=== PATIENT | female | born 1935 | race Caucasian/White ===

== ENCOUNTER 2021-03-07 15:52 | Inpatient (IN) | payer MEDICARE, OTHER ==
[~2021-03-07] VITALS: Ht 165.1 cm; Wt 83.9 kg
--- NOTE | 2021-03-07 16:10 | NUR ---
MD@bedside, medical screening exam in progress
[2021-03-07] MEDS ORDERED: ACETAMINOPHEN 325 MG TABLET PO ONE (16:30)
[2021-03-07] MEDS ORDERED: MORPHINE SULFATE 4 MG/1 ML DISP.SYRIN IM ONE (16:30)
[2021-03-07] MEDS ORDERED: ACETAMINOPHEN 325 MG TABLET ONE (16:31)
[2021-03-07] MEDS ORDERED: MORPHINE SULFATE 4 MG/1 ML DISP.SYRIN ONE ×2 (16:31→18:21)
--- NOTE | 2021-03-07 17:00 | NUR ---
Patient is back from CT scan in same condition, NAD, calm, cooperative, respiration:easy, non-labored, even and symmetrical, pending results & disposition.
[2021-03-07] MEDS ORDERED: MELO-107 PO (17:49)
[2021-03-07] MEDS ORDERED: GABA100C PO (17:49)
[2021-03-07] MEDS ORDERED: ATOR20TA PO (17:49)
[2021-03-07] MEDS ORDERED: OLOP2.5D12 EACHEYE (17:49)
[2021-03-07] MEDS ORDERED: VITAMIN D PO (17:50)
[2021-03-07] MEDS ORDERED: VALS1TAB4 PO (17:50)
[2021-03-07] MEDS ORDERED: SITA100T PO (17:50)
[2021-03-07] MEDS ORDERED: DULO30CA2 PO (17:50)
[2021-03-07] MEDS ORDERED: DOCU-265 PO (17:50)
[2021-03-07] MEDS ORDERED: PRED2.5T PO (17:50)
[2021-03-07] MEDS ORDERED: LEVO75TA7 PO (17:50)
[2021-03-07] MEDS ORDERED: NEBI5TAB8 PO (17:50)
[2021-03-07] MEDS ORDERED: MULT-594 PO (17:50)
[2021-03-07] MEDS ORDERED: ENOXAPARIN SODIUM 40 MG/0.4 ML DISP.SYRIN SQ SCH (18:00)
[2021-03-07] MEDS ORDERED: ACETAMINOPHEN 325 MG TABLET PO PRN (18:00)
[2021-03-07] MEDS ORDERED: Z GUARD REMEDY PASTE 57 GM TUBE TOP PRN (18:00)
[2021-03-07] MEDS ORDERED: ONDANSETRON 4 MG/2 ML VIAL IV PRN (18:00)
[2021-03-07] MEDS ORDERED: MAGNESIUM HYDROXIDE 30 ML LIQUID UDC PO PRN (18:00)
[2021-03-07] MEDS ORDERED: DEXTROSE 50% 50 ML DISP.SYRIN IV PRN (18:15)
[2021-03-07] MEDS ORDERED: MORPHINE SULFATE 4 MG/1 ML DISP.SYRIN IV ONE (18:15)
[2021-03-07] MEDS ORDERED: VITAMIN D 50000 UNIT PO SCH (18:15)
[2021-03-07 18:20] LABS: HEMATOCRIT 31.4 % (31.2-41.9); MEAN CORPUSCULAR HEMOGLOBIN 30.3 uug (24.7-32.8); MEAN CORPUSCULAR VOLUME 89.3 fL (75.5-95.3); PLATELET COUNT (AUTO) 221 K/uL (179-408)
--- NOTE | 2021-03-07 18:24 | NUR ---
Patient was assisted to hospital gown. Yessica-anal care done, for admission to 3rd floor, pending COVID test results@this time.
[2021-03-07 18:37] LABS: *BILIRUBIN,URIN NEGATIVE (NEGATIVE); *BLOOD, URINE NEGATIVE (NEGATIVE); *CLARITY,URINE CLEAR (CLEAR); *COLOR,URINE YELLOW (YELLOW); *KETONES,URINE NEGATIVE (NEGATIVE); *UROBILINOGEN,URINE 0.2 E.U./dl (NORMAL); LEUKOCYTE ESTERASE ,URINE NEGATIVE (NEGATIVE); NITRITE, URINE NEGATIVE (NEGATIVE); PH,URINE 7.5 (5.0-8.0); UGLUCOSE NEGATIVE (NEGATIVE)
--- NOTE | 2021-03-07 18:40 | NUR ---
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
--- NOTE | 2021-03-07 19:08 | NUR ---
Patient will move to 3rd floor medical-surgical floor, after COVID result is back and after change of shift. Belongings List completed. Hands off report given to RN Tico.
--- NOTE | 2021-03-07 19:36 | NUR ---
DIAMANTE Barnes states DIAMANTE Lees will be assigned to take care of this patient.
--- NOTE | 2021-03-07 20:00 | NUR ---
Pt. admitted to med-surg 304, under care of Dr. Arreaga Belongs List completed
[2021-03-07] MEDS ORDERED: IV NS 1000 ML 1,000 ML IV PRN (20:30)
--- NOTE | 2021-03-07 20:30 | NUR ---
RECEIVED PATIENT VIA GURNEY FROM ER. PATIENT IS A/O X3-4. SON AT BEDSIDE TO TRANSLATE. PATIENT IS FARSI SPEAKING ONLY,BUT ABLE TO MAKE SIMPLE NEEDS KNOWN. VSS. PATIENT C/O PAIN UPON ARRIVAL TO FLOOR. H/L INTACT AND PATENT, NOTED TO RIGHT HAND #20 GAUGE. CALL LIGHT IN REACH. BED ALARM ON. WILL CONTINUE TO MONITOR AND ASSESS.
[2021-03-07 20:45] VITALS: BP 114/52
[2021-03-07] MEDS: BLOOD SUGAR DIAGNOSTIC 1 EACH STRIP VI SCH (20:49)
[2021-03-07] MEDS: ENOXAPARIN SODIUM 40 MG/0.4 ML DISP.SYRIN SQ SCH (20:53)
[2021-03-07] MEDS: GABAPENTIN 100 MG CAPSULE PO SCH (20:53)
[2021-03-07] MEDS: ATORVASTATIN 20 MG TABLET PO SCH (20:53)
[2021-03-07] MEDS: HYDROCODONE/APAP 5-325MG TABLET PO PRN (20:54)
[2021-03-07] MEDS: MORPHINE SULFATE 2 MG/1 ML DISP.SYRIN IV PRN (22:19)
[2021-03-08 04:00] VITALS: BP 140/88
[2021-03-08] MEDS: MORPHINE SULFATE 2 MG/1 ML DISP.SYRIN IV PRN ×4 (05:37→22:24)
--- NOTE | 2021-03-08 05:45 | NUR ---
PATIENT AWAKE IN BED. C/O PAIN IN LOWER BACK AND LEFT SHOULDER. PATIENT NOTED GRASPING SHOULDER AND FACIAL GRIMACING. SMALL BRUISING NOTED TO BACK OF LEFT ARM, PATIENT SAID SHE DID FALL. PATIENT GIVEN MORPHINE 1MG IV PRN PER CLOTH BOIL OFF MACHINE OPERATOR. VS WNL. CALLED OUT TO DR. BISWAS GED TEACHER FOR FURTHER ORDERS. NO RESP. DISTRESS NOTED. WHEEZING NOTED. PATIENT ON 02 2L NC SATING 99%. DENIES ANY SOB. CALL LIGHT IN REACH. ALL NEEDS ATTENDED. WILL CONTINUE TO MONITOR AND ASSESS.
--- NOTE | 2021-03-08 06:06 | NUR ---
RECEIVED ORDER FOR XRAY OF LEFT SHOULDER PER DR. BISWAS.
[2021-03-08 06:29] LABS: HEMATOCRIT 31.4 % (31.2-41.9); MEAN CORPUSCULAR HEMOGLOBIN 30.7 uug (24.7-32.8); MEAN CORPUSCULAR VOLUME 89.4 fL (75.5-95.3); PLATELET COUNT (AUTO) 239 K/uL (179-408)
[2021-03-08] MEDS: BLOOD SUGAR DIAGNOSTIC 1 EACH STRIP VI SCH ×4 (06:32→20:54)
[2021-03-08] MEDS: PANTOPRAZOLE SODIUM 40 MG TABLET.DR PO SCH (06:32)
[2021-03-08] MEDS: LEVOTHYROXINE SODIUM 75 MCG TABLET PO SCH (06:32)
[2021-03-08 06:40] LABS: CARBON DIOXIDE 29 mmol/L (21-32); CHLORIDE 95 mmol/L (98-107); CHOLESTEROL 154 mg/dL (<200); GLUCOSE 118 mg/dL (74-106); HDL CHOLESTEROL 55 mg/dL (40-60); MAGNESIUM 2.3 mg/dL (1.8-2.4); PHOSPHOROUS 4.7 mg/dL (2.5-4.9); POTASSIUM 4.7 mmol/L (3.5-5.1); TRIGLYCERIDES 129 MG/DL (30-150); UREA NITROGEN, BLOOD 19 mg/dL (7-18)
[2021-03-08 06:49] LABS: THYROID STIMULATING HORMONE 5.171 mIU/mL (0.358-3.740)
--- NOTE | 2021-03-08 07:30 | NUR ---
Patient received in bed, alert and oriented, Farsi-speaking. On 2L O2 via NC with no SOB or difficulties breathing. IV on right hand intact and running IVF as ordered. BS of 115 this AM, no coverage. Patient c/o being cold and warm blanket provided. All needs met. Call light within easy reach. Will continue to monitor.
[2021-03-08] MEDS: predniSONE 10 MG TABLET PO SCH (08:00)
[2021-03-08] MEDS: LINAGLIPTIN 5 MG TABLET PO SCH (08:00)
[2021-03-08] MEDS: MULTIVITAMINS,THERAPEUTIC TABLET PO SCH (08:00)
[2021-03-08] MEDS: DOCUSATE SODIUM 100 MG CAPSULE PO SCH ×2 (08:00→16:02)
[2021-03-08] MEDS: DULOXETINE 30 MG CAPSULE.DR PO SCH (08:00)
[2021-03-08] MEDS: VALSARTAN 160 MG TABLET PO SCH (08:00)
[2021-03-08] MEDS: METOPROLOL TARTRATE 25 MG TABLET PO SCH ×2 (08:01→20:39)
[2021-03-08] MEDS: MELOXICAM 7.5 MG TABLET PO SCH (08:01)
[2021-03-08] MEDS ORDERED: Medication Not On Formulary EA (Sitagliptin Phosphate (Januvia) 100 MG) PO SCH (09:00)
[2021-03-08] MEDS ORDERED: Medication Not On Formulary EA (Nebivolol Hcl (Bystolic) 5 MG) PO SCH (09:00)
[2021-03-08] MEDS ORDERED: Medication Not On Formulary EA (Meloxicam 15 MG) PO SCH (09:00)
[2021-03-08] MEDS ORDERED: Medication Not On Formulary EA (Multivitamins (Multivitamin) 1 EACH) PO SCH (09:00)
[2021-03-08] MEDS ORDERED: HYDROCHLOROTHIAZIDE 12.5 MG CAPSULE PO SCH (09:00)
[2021-03-08] MEDS: HYDROCODONE/APAP 5-325MG TABLET PO PRN ×2 (09:12→14:12)
--- NOTE | 2021-03-08 09:49 | NUR ---
Patient is moaning and crying from pain after norco administration, 8/10 pain. Additional morphine administered as ordered.
[2021-03-08 12:00] VITALS: BP 117/48
[2021-03-08] MEDS: LIDOCAINE 5% PATCH TD SCH (12:01)
[2021-03-08] MEDS: INSULIN REGULAR, HUMAN 300 UNIT/3 ML VIAL SQ PRN ×2 (12:36→20:55)
[2021-03-08 16:31] VITALS: BP 126/48
--- NOTE | 2021-03-08 19:45 | NUR ---
RECEIVED PATIENT AWAKE IN BED, SON AT BEDSIDE. PATIENT IS C/O SEVERE PAIN IN LOWER BACK. PATIENT GIVEN MORPHINE 1MG IV PER RN. VS WNL. ON O2 2L NC SATING WELL. NO RESP. DISTRESS NOTED. PATIENT REPOSITIONED TO SIDE FOR PRESSURE RELIEF. H/L INTACT AND PATENT, NOTED TO RIGHT HAND. CALL LIGHT IN REACH. ALL NEEDS ATTENDED. WILL CONTINUE TO MONITOR AND ASSESS.
[2021-03-08 20:00] VITALS: BP 122/45
[2021-03-08] MEDS: GABAPENTIN 100 MG CAPSULE PO SCH (20:38)
[2021-03-08] MEDS: ATORVASTATIN 20 MG TABLET PO SCH (20:38)
[2021-03-08] MEDS: ENOXAPARIN SODIUM 40 MG/0.4 ML DISP.SYRIN SQ SCH (20:39)
[2021-03-08] MEDS ORDERED: ZOLPIDEM 5 MG TABLET PO PRN (21:45)
--- NOTE | 2021-03-08 21:45 | NUR ---
PATIENT AWAKE IN BED, STILL C/O PAIN IN LOWER BACK. CALLED OUT TO DR. MADRID FOR FURTHER ORDERS.
--- NOTE | 2021-03-08 22:30 | NUR ---
PATIENT GIVEN MORPHINE 2MG IV PER RN. VSS. ON O2 2L NC. CALL LIGHT IN REACH. ALL NEEDS ATTENDED.
--- NOTE | 2021-03-08 23:00 | NUR ---
PATIENT ASLEEP IN BED. NO S/S OF ANY PAIN OR DISCOMFORT. NO RESP. DISTRESS NOTED. BED ALARM ON. CALL LIGHT IN REACH. ALL NEEDS ATTENDED. WILL CONTINUE TO MONITOR AND ASSESS.
[2021-03-09 04:00] VITALS: BP 127/47
[2021-03-09 06:04] LABS: HEMATOCRIT 31.3 % (31.2-41.9); MEAN CORPUSCULAR HEMOGLOBIN 30.4 uug (24.7-32.8); PLATELET COUNT (AUTO) 218 K/uL (179-408)
[2021-03-09] MEDS: PANTOPRAZOLE SODIUM 40 MG TABLET.DR PO SCH (06:10)
[2021-03-09] MEDS: LEVOTHYROXINE SODIUM 75 MCG TABLET PO SCH (06:10)
[2021-03-09 06:11] LABS: CREATININE 0.9 mg/dL (0.6-1.3); MAGNESIUM 2.1 mg/dL (1.8-2.4); PHOSPHOROUS 3.7 mg/dL (2.5-4.9); POTASSIUM 4.6 mmol/L (3.5-5.1)
[2021-03-09] MEDS: BLOOD SUGAR DIAGNOSTIC 1 EACH STRIP VI SCH ×5 (06:37→20:31)
--- NOTE | 2021-03-09 07:00 | NUR ---
Patient received in bed, alert and oriented, Farsi-speaking. On 2L O2 via NC with no SOB or difficulties breathing. IV on right hand intact All needs met. Call light within easy reach. Will continue to monitor
[2021-03-09] MEDS: LIDOCAINE 5% PATCH TD SCH (07:58)
[2021-03-09] MEDS: LINAGLIPTIN 5 MG TABLET PO SCH (07:59)
[2021-03-09] MEDS: DOCUSATE SODIUM 100 MG CAPSULE PO SCH ×2 (07:59→16:16)
[2021-03-09] MEDS: VALSARTAN 160 MG TABLET PO SCH (07:59)
[2021-03-09] MEDS: DULOXETINE 30 MG CAPSULE.DR PO SCH (07:59)
[2021-03-09] MEDS: predniSONE 10 MG TABLET PO SCH (07:59)
[2021-03-09] MEDS: METOPROLOL TARTRATE 25 MG TABLET PO SCH ×2 (07:59→20:02)
[2021-03-09] MEDS: MULTIVITAMINS,THERAPEUTIC TABLET PO SCH (07:59)
[2021-03-09] MEDS: MELOXICAM 7.5 MG TABLET PO SCH (08:00)
--- NOTE | 2021-03-09 10:00 | NUR ---
pt is resting and son is at bed side
[2021-03-09] MEDS: HYDROCODONE/APAP 5-325MG TABLET PO PRN ×2 (10:58→20:07)
--- NOTE | 2021-03-09 10:58 | NUR ---
pt c/o pain in the back [place] 5mg Po given per Md orders
[2021-03-09 11:03] VITALS: BP 138/44
[2021-03-09] MEDS: INSULIN REGULAR, HUMAN 300 UNIT/3 ML VIAL SQ PRN (12:09)
[2021-03-09 14:59] VITALS: BP 142/55
[2021-03-09] MEDS: MORPHINE SULFATE 2 MG/1 ML DISP.SYRIN IV PRN (16:10)
[2021-03-09 20:00] VITALS: BP 161/61
[2021-03-09] MEDS: ATORVASTATIN 20 MG TABLET PO SCH (20:03)
[2021-03-09] MEDS: GABAPENTIN 100 MG CAPSULE PO SCH (20:03)
[2021-03-09] MEDS: ENOXAPARIN SODIUM 40 MG/0.4 ML DISP.SYRIN SQ SCH (20:03)
--- NOTE | 2021-03-10 02:40 | NUR ---
pt sleeping at this time call light with in reach
[2021-03-10 04:00] VITALS: BP 142/64
[2021-03-10] MEDS: HYDROCODONE/APAP 5-325MG TABLET PO PRN ×3 (05:11→15:44)
[2021-03-10] MEDS: LEVOTHYROXINE SODIUM 75 MCG TABLET PO SCH (06:04)
[2021-03-10] MEDS: PANTOPRAZOLE SODIUM 40 MG TABLET.DR PO SCH (06:04)
[2021-03-10] MEDS: BLOOD SUGAR DIAGNOSTIC 1 EACH STRIP VI SCH ×3 (06:05→16:43)
[2021-03-10] MEDS ORDERED: ACET325T53 PO (07:52)
[2021-03-10] MEDS ORDERED: LINA5TAB PO (07:52)
[2021-03-10] MEDS ORDERED: METO25TA6 PO (07:52)
[2021-03-10] MEDS ORDERED: Ergocalciferol PO (07:52)
[2021-03-10] MEDS ORDERED: MULT-24 PO (07:52)
[2021-03-10] MEDS ORDERED: MAGN400O6 PO (07:52)
[2021-03-10] MEDS ORDERED: LIDO30AD10 TD (07:52)
[2021-03-10] MEDS ORDERED: VALS160T2 PO (07:52)
[2021-03-10] MEDS ORDERED: PANT40TA2 PO (07:52)
[2021-03-10] MEDS ORDERED: MELO-105 PO (07:52)
[2021-03-10] MEDS ORDERED: ZOLP5TAB8 PO (07:52)
[2021-03-10] MEDS ORDERED: ENOX40DI SQ (07:52)
[2021-03-10] MEDS ORDERED: HYDR-3972 PO (07:52)
[2021-03-10] MEDS ORDERED: Blood Sugar Diagnostic VI (07:52)
--- NOTE | 2021-03-10 08:00 | NUR ---
Received report from night supervisor RN. pt is alert and oriented x 3. Speaks Farsi, son translates for her when at bedside. pt is on 2 L nasal cannula, uses a diaper, on cardiac diet. She is able to swallow her medications whole. Pt complains of back and hip pain, has a right hip fx. 20 gauge IV access on right hand. accuchecks ac and hs. will continue to monitor.
[2021-03-10] MEDS: DOCUSATE SODIUM 100 MG CAPSULE PO SCH ×2 (08:37→17:11)
[2021-03-10] MEDS: LINAGLIPTIN 5 MG TABLET PO SCH (08:37)
[2021-03-10] MEDS: MULTIVITAMINS,THERAPEUTIC TABLET PO SCH (08:38)
[2021-03-10] MEDS: predniSONE 10 MG TABLET PO SCH (08:38)
[2021-03-10] MEDS: MELOXICAM 7.5 MG TABLET PO SCH (08:38)
[2021-03-10] MEDS: VALSARTAN 160 MG TABLET PO SCH (08:38)
[2021-03-10] MEDS: DULOXETINE 30 MG CAPSULE.DR PO SCH (08:38)
[2021-03-10] MEDS: METOPROLOL TARTRATE 25 MG TABLET PO SCH (08:40)
[2021-03-10] MEDS: LIDOCAINE 5% PATCH TD SCH (08:41)
[2021-03-10 11:43] VITALS: BP 130/44
[2021-03-10] MEDS: INSULIN REGULAR, HUMAN 300 UNIT/3 ML VIAL SQ PRN ×2 (11:58→16:50)
[2021-03-10 16:30] VITALS: BP 144/45
--- NOTE | 2021-03-10 18:00 | NUR ---
Patient resting in bed. AOx4. On 2L O2 via NC. No signs of acute distress. Patient with right hand IV access, patent and intact. Patient complained of back pain, [place] PRN given as ordered. Safety measures provided. Needs anticipated and met. Will endorse to incoming shift for continuity of care.
--- NOTE | 2021-03-10 18:34 | NUR ---
Patient discharged to [facility] ARU. Patient AOx4. On 2L O2 via NC. No signs of acute distress. Patient aware of transfer to ARU.
[2021-03-13] MEDS ORDERED: ERGOCALCIFEROL 50,000 UNIT CAPSULE PO SCH (09:00)
== END 2021-03-10 18:35 | DRG 543 ==
LOC: ER 15:52 → MEDSURG3 20:11
PROVIDERS: ADMIT Registered Nurse; ATTEND Registered Nurse
DX: M80.08XA Age-related osteoporosis with current pathological fracture, vertebra(e), initial encounter for fracture (principal); E87.1 Hypo-osmolality and hyponatremia; E03.9 Hypothyroidism, unspecified; E66.9 Obesity, unspecified; D64.9 Anemia, unspecified; E86.1 Hypovolemia; G89.4 Chronic pain syndrome; I11.0 Hypertensive heart disease with heart failure; I50.9 Heart failure, unspecified; M48.061 Spinal stenosis, lumbar region without neurogenic claudication; R26.9 Unspecified abnormalities of gait and mobility; M19.90 Unspecified osteoarthritis, unspecified site; Z68.30 Body mass index [BMI] 30.0-30.9, adult; Z20.822 Contact with and (suspected) exposure to COVID-19; M47.816 Spondylosis without myelopathy or radiculopathy, lumbar region
CPT/HCPCS: 36415; 72131; 72170; 73020; 73630; 83735; 84100; 84443; 85025; 97161; C1758; G0378; J1650; J1815; J2270; J7030; J7512

== ENCOUNTER 2021-03-10 18:36 | Inpatient (IN) | payer MEDICARE, OTHER ==
[~2021-03-10] VITALS: Ht 165.1 cm; Wt 83.9 kg
[~2021-03-10 18:36] MED LIST: ACET325T53 PO; ATOR20TA PO; Blood Sugar Diagnostic VI; DOCU-265 PO; DULO30CA2 PO; ENOX40DI SQ; Ergocalciferol PO; GABA100C PO; HYDR-3972 PO; LEVO75TA7 PO; LIDO30AD10 TD; LINA5TAB PO; MAGN400O6 PO; MELO-105 PO; MELO-107 PO; METO25TA6 PO; MULT-24 PO; MULT-594 PO; NEBI5TAB8 PO; OLOP2.5D12 EACHEYE; PANT40TA2 PO; PRED2.5T PO; SITA100T PO; VALS160T2 PO; VALS1TAB4 PO; VITAMIN D PO; ZOLP5TAB8 PO
[2021-03-10] MEDS: Z GUARD REMEDY PASTE 57 GM TUBE TOP SCH (21:46)
[2021-03-10] MEDS ORDERED: MAGNESIUM HYDROXIDE 30 ML LIQUID UDC PO PRN (22:00)
[2021-03-10] MEDS ORDERED: ZOLPIDEM 5 MG TABLET PO PRN (22:00)
[2021-03-10] MEDS: HYDROCODONE/APAP 5-325MG TABLET PO PRN (22:31)
[2021-03-10] MEDS: ENOXAPARIN SODIUM 40 MG/0.4 ML DISP.SYRIN SQ SCH (22:36)
--- NOTE | 2021-03-11 01:19 | NUR ---
Admitted 85 y/o female from NH to ARU with dx of acute bilateral L5 pars fractures and severe lumbar central stenosis. On O2 at 2lpm via NC, saturating at 97%. No respiratory distress. Initial and full body assessment done with photo taken, placed in chart. Belongings list filled up by BOOK[employer]. R hand heplock remains patent and intact, flushed with NS. Informed Dr. Pollard of admission and med recon done by Dr. Collins. Pt c/o pain on L hip 02/04, norco PRN given and noted effective. Pt fell asleep afterwards. Call light placed within reach. All needs attended. Will continue to monitor.
[2021-03-11] MEDS: HYDROCODONE/APAP 5-325MG TABLET PO PRN ×4 (05:19→19:18)
[2021-03-11] MEDS: LEVOTHYROXINE SODIUM 75 MCG TABLET PO SCH (06:01)
[2021-03-11] MEDS: PANTOPRAZOLE SODIUM 40 MG TABLET.DR PO SCH (06:01)
--- NOTE | 2021-03-11 06:15 | NUR ---
Pt slept intermittently and called a lot throughout the night, was changed several times. Medicated pain x2, noted effective. Turned and repositioned PRN. All due medications given on time and tolerated well. Call light placed within reach. Frequent visual checks done. Will endorse to next shift for continuity of care.
[2021-03-11 07:18] VITALS: BP 159/54
[2021-03-11] MEDS ORDERED: DEXTROSE 50% 50 ML DISP.SYRIN IV PRN (08:00)
--- NOTE | 2021-03-11 08:00 | NUR ---
Received report from retail shift manager RN. pt is asleep, on 2L NC. alert and oriented x 3. comfort measures taken, call light within reach. bed low and locked. no signs of discomfort or distress at this time. will continue to monitor.
[2021-03-11] MEDS: predniSONE 10 MG TABLET PO SCH (09:32)
[2021-03-11] MEDS: MULTIVITAMINS,THERAPEUTIC TABLET PO SCH (09:32)
[2021-03-11] MEDS: LINAGLIPTIN 5 MG TABLET PO SCH (09:32)
[2021-03-11] MEDS: MELOXICAM 7.5 MG TABLET PO SCH (09:32)
[2021-03-11] MEDS: METOPROLOL TARTRATE 25 MG TABLET PO SCH ×2 (09:33→20:28)
[2021-03-11] MEDS: DULOXETINE 30 MG CAPSULE.DR PO SCH (09:33)
[2021-03-11] MEDS: VALSARTAN 160 MG TABLET PO SCH (09:33)
[2021-03-11] MEDS: DOCUSATE SODIUM 100 MG CAPSULE PO SCH ×2 (09:33→16:40)
[2021-03-11] MEDS: Z GUARD REMEDY PASTE 57 GM TUBE TOP SCH ×2 (09:36→20:41)
[2021-03-11] MEDS: LIDOCAINE 5% PATCH TD SCH (09:36)
[2021-03-11] MEDS: BLOOD SUGAR DIAGNOSTIC 1 EACH STRIP VI SCH ×3 (12:02→20:41)
[2021-03-11] MEDS ORDERED: PHENYLEPHRINE/SHARK LIVER/CCB 1 EACH SUPP.RECT RC PRN (15:15)
[2021-03-11 15:41] VITALS: BP 146/45
[2021-03-11] MEDS ORDERED: CLONIDINE HCL 0.2 MG TABLET PO PRN (16:30)
[2021-03-11] MEDS: INSULIN REGULAR, HUMAN 300 UNIT/3 ML VIAL SQ PRN (16:47)
[2021-03-11 20:00] VITALS: BP 152/57
[2021-03-11] MEDS: GABAPENTIN 100 MG CAPSULE PO SCH (20:28)
[2021-03-11] MEDS: ATORVASTATIN 20 MG TABLET PO SCH (20:33)
[2021-03-11] MEDS: ENOXAPARIN SODIUM 40 MG/0.4 ML DISP.SYRIN SQ SCH (20:41)
[2021-03-12] MEDS: HYDROCODONE/APAP 5-325MG TABLET PO PRN ×4 (03:54→23:39)
[2021-03-12 04:00] VITALS: BP 144/53
[2021-03-12] MEDS: LEVOTHYROXINE SODIUM 75 MCG TABLET PO SCH (06:02)
[2021-03-12] MEDS: PANTOPRAZOLE SODIUM 40 MG TABLET.DR PO SCH (06:02)
[2021-03-12] MEDS: BLOOD SUGAR DIAGNOSTIC 1 EACH STRIP VI SCH ×4 (06:37→20:08)
[2021-03-12 08:00] VITALS: BP 126/41
[2021-03-12] MEDS: METOPROLOL TARTRATE 25 MG TABLET PO SCH ×2 (08:04→20:16)
[2021-03-12] MEDS: MULTIVITAMINS,THERAPEUTIC TABLET PO SCH (08:04)
[2021-03-12] MEDS: DOCUSATE SODIUM 100 MG CAPSULE PO SCH ×2 (08:04→16:06)
[2021-03-12] MEDS: predniSONE 10 MG TABLET PO SCH (08:04)
[2021-03-12] MEDS: LIDOCAINE 5% PATCH TD SCH (08:04)
[2021-03-12] MEDS: LINAGLIPTIN 5 MG TABLET PO SCH (08:04)
[2021-03-12] MEDS: MELOXICAM 7.5 MG TABLET PO SCH (08:04)
[2021-03-12] MEDS: DULOXETINE 30 MG CAPSULE.DR PO SCH (08:04)
[2021-03-12] MEDS: VALSARTAN 160 MG TABLET PO SCH (08:05)
[2021-03-12] MEDS: Z GUARD REMEDY PASTE 57 GM TUBE TOP SCH ×2 (09:00→20:26)
[2021-03-12] MEDS: INSULIN REGULAR, HUMAN 300 UNIT/3 ML VIAL SQ PRN ×2 (11:02→20:19)
[2021-03-12 11:06] LABS: POTASSIUM 4.3 mmol/L (3.5-5.1)
--- NOTE | 2021-03-12 14:28 | NUR ---
INTERDISCIPLINARY TEAM CONFERENCE
[2021-03-12] MEDS: OXYCODONE HCL 10 MG TAB.SR.12H PO SCH (14:44)
[2021-03-12] MEDS ORDERED: NALOXONE HCL 0.4 MG/ML AMPUL IV PRN (14:45)
[2021-03-12 16:11] VITALS: BP 147/55
[2021-03-12 20:00] VITALS: BP 123/56
[2021-03-12] MEDS: ATORVASTATIN 20 MG TABLET PO SCH (20:09)
[2021-03-12] MEDS: GABAPENTIN 100 MG CAPSULE PO SCH (20:09)
[2021-03-12] MEDS: ENOXAPARIN SODIUM 40 MG/0.4 ML DISP.SYRIN SQ SCH (20:19)
[2021-03-13 04:46] VITALS: BP 127/78
[2021-03-13] MEDS: PANTOPRAZOLE SODIUM 40 MG TABLET.DR PO SCH (06:08)
[2021-03-13] MEDS: LEVOTHYROXINE SODIUM 75 MCG TABLET PO SCH (06:08)
[2021-03-13] MEDS: BLOOD SUGAR DIAGNOSTIC 1 EACH STRIP VI SCH ×4 (06:56→21:27)
[2021-03-13 08:00] VITALS: BP 129/67
[2021-03-13] MEDS: HYDROCODONE/APAP 5-325MG TABLET PO PRN ×3 (08:13→20:06)
[2021-03-13] MEDS: METOPROLOL TARTRATE 25 MG TABLET PO SCH ×2 (08:38→21:00)
[2021-03-13] MEDS: LINAGLIPTIN 5 MG TABLET PO SCH (08:38)
[2021-03-13] MEDS: MULTIVITAMINS,THERAPEUTIC TABLET PO SCH (08:39)
[2021-03-13] MEDS: DULOXETINE 60 MG CAPSULE.DR PO SCH (08:39)
[2021-03-13] MEDS: MELOXICAM 7.5 MG TABLET PO SCH (08:39)
[2021-03-13] MEDS: predniSONE 10 MG TABLET PO SCH (08:39)
[2021-03-13] MEDS: VALSARTAN 160 MG TABLET PO SCH (08:39)
[2021-03-13] MEDS: DOCUSATE SODIUM 100 MG CAPSULE PO SCH ×2 (08:39→16:18)
[2021-03-13] MEDS: LIDOCAINE 5% PATCH TD SCH (08:40)
[2021-03-13] MEDS: Z GUARD REMEDY PASTE 57 GM TUBE TOP SCH ×2 (08:40→21:28)
[2021-03-13] MEDS: OXYCODONE HCL 10 MG TAB.SR.12H PO SCH (10:21)
[2021-03-13] MEDS: INSULIN REGULAR, HUMAN 300 UNIT/3 ML VIAL SQ PRN ×3 (12:10→20:34)
[2021-03-13 16:06] VITALS: BP 125/42
--- NOTE | 2021-03-13 16:17 | NUR ---
INDIVIDUALIZED PLAN OF CARE
--- NOTE | 2021-03-13 18:34 | NUR ---
patient is alert, oriented x4, no sob, resp even nonlabored ,skin warm and dry to touch, pain was in lot of pain, managed with medication, and nonpharmacological interventions, with some effectiveness, kept patient clean and dry. patient participated in PT,OT services, however tolerated fairly. continue with PT, OT as tolerated, family has multiple questions regarding patient progress toward PT ,OT. appropriate questions answered. continue with current plan of care
[2021-03-13] MEDS: ATORVASTATIN 20 MG TABLET PO SCH (20:06)
[2021-03-13] MEDS: GABAPENTIN 100 MG CAPSULE PO SCH (20:06)
[2021-03-13 20:11] VITALS: BP 135/46
[2021-03-13] MEDS: ENOXAPARIN SODIUM 40 MG/0.4 ML DISP.SYRIN SQ SCH (20:35)
[2021-03-14] MEDS: HYDROCODONE/APAP 10-325 MG TABLET PO PRN ×2 (00:09→10:33)
--- NOTE | 2021-03-14 00:10 | NUR ---
Patient awake screaming of pain .[place] 5/325 was given and was ineffective .Repositioned patient for comfort.Still c/o pain. Dr Dunlap was here.Notified MD with new order received noted and carried out.[place] 10/325 given.Will continue to monitor.
[2021-03-14 04:21] VITALS: BP 135/80
[2021-03-14] MEDS: PANTOPRAZOLE SODIUM 40 MG TABLET.DR PO SCH (06:16)
[2021-03-14] MEDS: LEVOTHYROXINE SODIUM 75 MCG TABLET PO SCH (06:16)
[2021-03-14] MEDS: BLOOD SUGAR DIAGNOSTIC 1 EACH STRIP VI SCH ×4 (06:45→20:25)
[2021-03-14 07:27] VITALS: BP 131/54
--- NOTE | 2021-03-14 07:30 | NUR ---
Patient received in bed, alert and oriented x3-4, mainly Farsi-speaking. Right hand IV intact with no redness or swelling. BS is 95 this AM, no coverage required. No c/o pain or discomforts at this time. All needs met at this time. Call light and personal belongings within easy reach. Will continue to monitor.
[2021-03-14] MEDS: DULOXETINE 60 MG CAPSULE.DR PO SCH (08:15)
[2021-03-14] MEDS: predniSONE 10 MG TABLET PO SCH (08:15)
[2021-03-14] MEDS: DOCUSATE SODIUM 100 MG CAPSULE PO SCH ×2 (08:15→18:17)
[2021-03-14] MEDS: OXYCODONE HCL 10 MG TAB.SR.12H PO SCH (08:15)
[2021-03-14] MEDS: VALSARTAN 160 MG TABLET PO SCH (08:16)
[2021-03-14] MEDS: MULTIVITAMINS,THERAPEUTIC TABLET PO SCH (08:16)
[2021-03-14] MEDS: LINAGLIPTIN 5 MG TABLET PO SCH (08:16)
[2021-03-14] MEDS: METOPROLOL TARTRATE 25 MG TABLET PO SCH ×2 (08:16→20:24)
[2021-03-14] MEDS: LIDOCAINE 5% PATCH TD SCH (08:17)
[2021-03-14] MEDS: Z GUARD REMEDY PASTE 57 GM TUBE TOP SCH ×2 (10:37→20:25)
[2021-03-14] MEDS: HYDROCODONE/APAP 5-325MG TABLET PO PRN ×2 (15:16→20:40)
[2021-03-14 15:42] VITALS: BP 133/44
[2021-03-14] MEDS: MIRALAX 17 GM POWD.PACK PO SCH (18:17)
[2021-03-14] MEDS: INSULIN REGULAR, HUMAN 300 UNIT/3 ML VIAL SQ PRN ×2 (18:17→20:36)
--- NOTE | 2021-03-14 20:00 | NUR ---
NSG: Received patient lying in bed. on 2L NC. alert and oriented x 3. comfort measures taken, call light within reach. bed low and locked. no signs of discomfort or distress at this time. will continue to monitor.
[2021-03-14 20:10] VITALS: BP 112/42
[2021-03-14] MEDS: ENOXAPARIN SODIUM 40 MG/0.4 ML DISP.SYRIN SQ SCH ×2 (20:22→20:35)
[2021-03-14] MEDS: ATORVASTATIN 20 MG TABLET PO SCH (20:23)
[2021-03-14] MEDS: GABAPENTIN 100 MG CAPSULE PO SCH (20:23)
[2021-03-15 04:10] VITALS: BP 137/67
[2021-03-15 04:38] VITALS: BP 137/67
--- NOTE | 2021-03-15 05:06 | NUR ---
NSG: Remain calm and cooperative. pain meds given x1 for pain and effective. assisted with adl's. good pericare given. Turned and repositioned PRN. All due medications given on time and tolerated well. Call light placed within reach. Frequent visual checks done. bed alarm on. continue plan of care.
[2021-03-15] MEDS: HYDROCODONE/APAP 5-325MG TABLET PO PRN ×2 (05:46→16:53)
--- NOTE | 2021-03-15 05:47 | NUR ---
patient c/o hip pain. norco 5/325 mg po given. continue monitoring for pain.
[2021-03-15] MEDS: LEVOTHYROXINE SODIUM 75 MCG TABLET PO SCH (06:01)
[2021-03-15] MEDS: PANTOPRAZOLE SODIUM 40 MG TABLET.DR PO SCH (06:01)
[2021-03-15] MEDS: BLOOD SUGAR DIAGNOSTIC 1 EACH STRIP VI SCH ×4 (06:21→20:25)
[2021-03-15 07:23] VITALS: BP 111/45
--- NOTE | 2021-03-15 07:30 | NUR ---
Patient received in bed, alert and oriented x3-4, mainly Farsi-speaking. Right hand IV intact with no redness or swelling. BS is 94 this AM, no coverage required. No c/o pain or discomforts at this time. All needs met at this time. Call light and personal belongings within easy reach. Will continue to monitor.
[2021-03-15] MEDS: DULOXETINE 60 MG CAPSULE.DR PO SCH (08:29)
[2021-03-15] MEDS: MULTIVITAMINS,THERAPEUTIC TABLET PO SCH (08:29)
[2021-03-15] MEDS: LINAGLIPTIN 5 MG TABLET PO SCH (08:29)
[2021-03-15] MEDS: predniSONE 10 MG TABLET PO SCH (08:29)
[2021-03-15] MEDS: LIDOCAINE 5% PATCH TD SCH (08:29)
[2021-03-15] MEDS: MIRALAX 17 GM POWD.PACK PO SCH (08:29)
[2021-03-15] MEDS: DOCUSATE SODIUM 100 MG CAPSULE PO SCH ×2 (08:29→16:52)
[2021-03-15] MEDS: OXYCODONE HCL 10 MG TAB.SR.12H PO SCH (08:30)
[2021-03-15] MEDS: METOPROLOL TARTRATE 25 MG TABLET PO SCH ×2 (08:30→20:20)
[2021-03-15] MEDS: VALSARTAN 160 MG TABLET PO SCH (08:30)
[2021-03-15] MEDS: Z GUARD REMEDY PASTE 57 GM TUBE TOP SCH ×2 (08:31→20:25)
[2021-03-15 11:30] VITALS: BP 111/45
[2021-03-15] MEDS: INSULIN REGULAR, HUMAN 300 UNIT/3 ML VIAL SQ PRN ×3 (11:58→20:33)
[2021-03-15 15:06] VITALS: BP 123/49
--- NOTE | 2021-03-15 19:31 | NUR ---
NSG: Received patient lying in bed. Patient is alert and oriented x 3. comfort measures taken, call light within reach. bed low and locked. no signs of discomfort or distress at this time. will continue to monitor.
[2021-03-15 20:00] VITALS: BP 123/49
[2021-03-15] MEDS: GABAPENTIN 100 MG CAPSULE PO SCH (20:20)
[2021-03-15] MEDS: ATORVASTATIN 20 MG TABLET PO SCH (20:20)
[2021-03-15] MEDS: ENOXAPARIN SODIUM 40 MG/0.4 ML DISP.SYRIN SQ SCH (20:25)
--- NOTE | 2021-03-16 00:29 | NUR ---
resting in bed comfortably. no s/s of pain or discomfort at this time.
[2021-03-16] MEDS: HYDROCODONE/APAP 10-325 MG TABLET PO PRN ×2 (03:24→15:25)
[2021-03-16 04:21] VITALS: BP 154/53
--- NOTE | 2021-03-16 04:46 | NUR ---
NSG: Remain calm and cooperative. NORCO given x1 for pain and effective. assisted with adl's. good pericare given. Turned and repositioned PRN. All due medications given on time and tolerated well. Call light placed within reach. Frequent visual checks done. bed alarm on. continue plan of care.
[2021-03-16] MEDS: PANTOPRAZOLE SODIUM 40 MG TABLET.DR PO SCH (06:06)
[2021-03-16] MEDS: LEVOTHYROXINE SODIUM 75 MCG TABLET PO SCH (06:06)
[2021-03-16] MEDS: BLOOD SUGAR DIAGNOSTIC 1 EACH STRIP VI SCH ×4 (06:34→20:46)
[2021-03-16 08:00] VITALS: BP 148/47
[2021-03-16] MEDS: LIDOCAINE 5% PATCH TD SCH (08:48)
[2021-03-16] MEDS: DOCUSATE SODIUM 100 MG CAPSULE PO SCH ×2 (08:48→16:59)
[2021-03-16] MEDS: LINAGLIPTIN 5 MG TABLET PO SCH (08:48)
[2021-03-16] MEDS: MULTIVITAMINS,THERAPEUTIC TABLET PO SCH (08:49)
[2021-03-16] MEDS: DULOXETINE 60 MG CAPSULE.DR PO SCH (08:49)
[2021-03-16] MEDS: VALSARTAN 160 MG TABLET PO SCH (08:49)
[2021-03-16] MEDS: OXYCODONE HCL 10 MG TAB.SR.12H PO SCH (08:50)
[2021-03-16] MEDS: MIRALAX 17 GM POWD.PACK PO SCH (08:50)
[2021-03-16] MEDS: METOPROLOL TARTRATE 25 MG TABLET PO SCH ×2 (08:50→20:14)
[2021-03-16] MEDS: Z GUARD REMEDY PASTE 57 GM TUBE TOP SCH ×2 (08:51→20:03)
--- NOTE | 2021-03-16 14:15 | NUR ---
Patient is alert and oriented x 3, at bedside. Patient in room air saturating at 95% no s/s of distress, able to follow simple commands. All due meds given per MD order. Call light placed within reach. All needs met promptly.
[2021-03-16 15:28] VITALS: BP 151/62
[2021-03-16 20:00] VITALS: BP 117/45
[2021-03-16] MEDS: GABAPENTIN 100 MG CAPSULE PO SCH (20:02)
[2021-03-16] MEDS: ATORVASTATIN 20 MG TABLET PO SCH (20:02)
[2021-03-16] MEDS: ENOXAPARIN SODIUM 40 MG/0.4 ML DISP.SYRIN SQ SCH (20:03)
[2021-03-17 04:00] VITALS: BP 133/59
[2021-03-17] MEDS: PANTOPRAZOLE SODIUM 40 MG TABLET.DR PO SCH (06:04)
[2021-03-17] MEDS: BLOOD SUGAR DIAGNOSTIC 1 EACH STRIP VI SCH ×4 (06:04→20:33)
[2021-03-17] MEDS: LEVOTHYROXINE SODIUM 75 MCG TABLET PO SCH (06:04)
[2021-03-17 08:00] VITALS: BP 139/47
[2021-03-17] MEDS: DULOXETINE 60 MG CAPSULE.DR PO SCH (08:58)
[2021-03-17] MEDS: DOCUSATE SODIUM 100 MG CAPSULE PO SCH ×2 (08:58→17:51)
[2021-03-17] MEDS: OXYCODONE HCL 10 MG TAB.SR.12H PO SCH (08:58)
[2021-03-17] MEDS: MULTIVITAMINS,THERAPEUTIC TABLET PO SCH (08:58)
[2021-03-17] MEDS: LINAGLIPTIN 5 MG TABLET PO SCH (08:59)
[2021-03-17] MEDS: VALSARTAN 160 MG TABLET PO SCH (08:59)
[2021-03-17] MEDS: METOPROLOL TARTRATE 25 MG TABLET PO SCH ×2 (08:59→20:25)
[2021-03-17] MEDS: MIRALAX 17 GM POWD.PACK PO SCH (09:00)
[2021-03-17] MEDS: LIDOCAINE 5% PATCH TD SCH (09:00)
[2021-03-17] MEDS: CLOTRIMAZOLE 1% CREAM 30 GM TUBE TOP SCH ×2 (09:04→17:51)
[2021-03-17] MEDS: Z GUARD REMEDY PASTE 57 GM TUBE TOP SCH ×2 (09:04→20:34)
[2021-03-17] MEDS: INSULIN REGULAR, HUMAN 300 UNIT/3 ML VIAL SQ PRN ×2 (12:07→20:33)
[2021-03-17] MEDS: HYDROCODONE/APAP 5-325MG TABLET PO PRN (13:14)
[2021-03-17 16:14] VITALS: BP 115/50
[2021-03-17 20:00] VITALS: BP 142/49
[2021-03-17] MEDS: HYDROCODONE/APAP 10-325 MG TABLET PO PRN (20:25)
[2021-03-17] MEDS: ATORVASTATIN 20 MG TABLET PO SCH (20:25)
[2021-03-17] MEDS: GABAPENTIN 100 MG CAPSULE PO SCH (20:25)
[2021-03-17] MEDS: ENOXAPARIN SODIUM 40 MG/0.4 ML DISP.SYRIN SQ SCH (20:31)
--- NOTE | 2021-03-17 23:09 | NUR ---
Received pt resting in bed. AAO x3. No acute distress noted. C/o 8/10 pain, [place] PRN and other due meds given as ordered. Blood sugar 130, no insulin coverage as per sliding scale. Safety measures maintained. Call light within reach. Will continue to monitor.
[2021-03-18 04:00] VITALS: BP 125/45
[2021-03-18] MEDS: PANTOPRAZOLE SODIUM 40 MG TABLET.DR PO SCH (06:09)
[2021-03-18] MEDS: LEVOTHYROXINE SODIUM 75 MCG TABLET PO SCH (06:09)
[2021-03-18] MEDS: BLOOD SUGAR DIAGNOSTIC 1 EACH STRIP VI SCH ×4 (06:54→21:01)
[2021-03-18 08:50] VITALS: BP 127/49
[2021-03-18] MEDS: DULOXETINE 60 MG CAPSULE.DR PO SCH (09:25)
[2021-03-18] MEDS: OXYCODONE HCL 10 MG TAB.SR.12H PO SCH (09:25)
[2021-03-18] MEDS: DOCUSATE SODIUM 100 MG CAPSULE PO SCH ×2 (09:25→17:10)
[2021-03-18] MEDS: LINAGLIPTIN 5 MG TABLET PO SCH (09:25)
[2021-03-18] MEDS: METOPROLOL TARTRATE 25 MG TABLET PO SCH ×2 (09:25→20:52)
[2021-03-18] MEDS: CLOTRIMAZOLE 1% CREAM 30 GM TUBE TOP SCH ×2 (09:26→17:10)
[2021-03-18] MEDS: Z GUARD REMEDY PASTE 57 GM TUBE TOP SCH ×2 (09:26→20:56)
[2021-03-18] MEDS: MIRALAX 17 GM POWD.PACK PO SCH (09:26)
[2021-03-18] MEDS: LIDOCAINE 5% PATCH TD SCH (09:26)
[2021-03-18] MEDS: VALSARTAN 160 MG TABLET PO SCH (09:26)
[2021-03-18] MEDS: MULTIVITAMINS,THERAPEUTIC TABLET PO SCH (09:26)
[2021-03-18 15:45] VITALS: BP 119/50
[2021-03-18 20:05] VITALS: BP 131/56
[2021-03-18] MEDS: ATORVASTATIN 20 MG TABLET PO SCH (20:52)
[2021-03-18] MEDS: GABAPENTIN 100 MG CAPSULE PO SCH (20:52)
[2021-03-18] MEDS: ENOXAPARIN SODIUM 40 MG/0.4 ML DISP.SYRIN SQ SCH (20:54)
[2021-03-18] MEDS: HYDROCODONE/APAP 10-325 MG TABLET PO PRN (21:04)
--- NOTE | 2021-03-18 22:41 | NUR ---
Received pt on awake on bed. On O2 at 2L via NC with no respiratory distress noted. Alert and oriented x3, able to make needs known. [place] PRN given for back pain 02/04. Kept clean, dry, and comfortable. All needs attended. Call light placed within reach. Will continue to monitor.
[2021-03-19 04:01] VITALS: BP 134/54
[2021-03-19] MEDS: LEVOTHYROXINE SODIUM 75 MCG TABLET PO SCH (06:01)
[2021-03-19] MEDS: PANTOPRAZOLE SODIUM 40 MG TABLET.DR PO SCH (06:01)
[2021-03-19] MEDS: HYDROCODONE/APAP 10-325 MG TABLET PO PRN ×3 (06:17→20:23)
[2021-03-19] MEDS: BLOOD SUGAR DIAGNOSTIC 1 EACH STRIP VI SCH ×4 (06:30→20:30)
--- NOTE | 2021-03-19 07:15 | NUR ---
Received patient resting in bed. AOx3. No signs of acute distress. Call light within reach. Bed alarm on. Will continue to monitor.
[2021-03-19] MEDS: DOCUSATE SODIUM 100 MG CAPSULE PO SCH ×2 (08:56→16:17)
[2021-03-19] MEDS: DULOXETINE 60 MG CAPSULE.DR PO SCH (08:57)
[2021-03-19] MEDS: MULTIVITAMINS,THERAPEUTIC TABLET PO SCH (08:57)
[2021-03-19] MEDS: OXYCODONE HCL 10 MG TAB.SR.12H PO SCH ×2 (08:57→22:36)
[2021-03-19] MEDS: LIDOCAINE 5% PATCH TD SCH (08:57)
[2021-03-19] MEDS: LINAGLIPTIN 5 MG TABLET PO SCH (08:57)
[2021-03-19] MEDS: METOPROLOL TARTRATE 25 MG TABLET PO SCH ×2 (08:58→20:22)
[2021-03-19] MEDS: CLOTRIMAZOLE 1% CREAM 30 GM TUBE TOP SCH ×2 (08:59→16:22)
[2021-03-19] MEDS: VALSARTAN 160 MG TABLET PO SCH (08:59)
[2021-03-19] MEDS: Z GUARD REMEDY PASTE 57 GM TUBE TOP SCH ×2 (08:59→20:25)
[2021-03-19] MEDS: MIRALAX 17 GM POWD.PACK PO SCH (08:59)
[2021-03-19 11:00] VITALS: BP 117/48
--- NOTE | 2021-03-19 13:47 | NUR ---
INTERDISCIPLINARY TEAM CONFERENCE
[2021-03-19 15:36] VITALS: BP 140/63
[2021-03-19] MEDS: INSULIN REGULAR, HUMAN 300 UNIT/3 ML VIAL SQ PRN (16:23)
--- NOTE | 2021-03-19 18:41 | NUR ---
Patient resting in bed. AOx3-4. On room air. No signs of acute distress. Patient complained of lower back pain. [place] PRN given, patient stated relief of pain. Patient compliant with medications and care. Patient participated with physical therapy and occupational therapy. Needs anticipated and met. Safety measures provided. Will endorse to incoming shift for continuity of care.
[2021-03-19 20:00] VITALS: BP 123/58
[2021-03-19] MEDS: GABAPENTIN 100 MG CAPSULE PO SCH (20:21)
[2021-03-19] MEDS: ATORVASTATIN 20 MG TABLET PO SCH (20:22)
[2021-03-19] MEDS: ENOXAPARIN SODIUM 40 MG/0.4 ML DISP.SYRIN SQ SCH (20:24)
[2021-03-19] MEDS ORDERED: OXYCODONE/APAP 5-325 MG TABLET PO PRN (22:30)
--- NOTE | 2021-03-20 01:16 | NUR ---
Received pt on awake on bed. On O2 at 2L via NC with no respiratory distress noted. Alert and oriented x3, able to make needs known. [place] PRN given for back pain 02/04. Pt complained of pain again after [address] Pollard made aware, seen and examined pt with orders made and carried out. Percocet 2 tabs PRN given, noted effective. Kept clean, dry, and comfortable. All needs attended. Call light placed within reach. Will continue to monitor.
[2021-03-20] MEDS: ACETAMINOPHEN 325 MG TABLET PO PRN (01:57)
[2021-03-20 04:00] VITALS: BP 131/48
[2021-03-20] MEDS: PANTOPRAZOLE SODIUM 40 MG TABLET.DR PO SCH (06:06)
[2021-03-20] MEDS: LEVOTHYROXINE SODIUM 75 MCG TABLET PO SCH (06:06)
--- NOTE | 2021-03-20 06:24 | NUR ---
Pt slept intermittently throughout the night. Tylenol PRN given. Accucheck done, BS 109. All needs attended. Kept clean and dry at all times. Call light placed within reach. Frequent visual checks done. Will endorse for continuity of care.
[2021-03-20 06:25] LABS: HEMATOCRIT 31.7 % (31.2-41.9); MEAN CORPUSCULAR HEMOGLOBIN 30.3 uug (24.7-32.8); MEAN CORPUSCULAR VOLUME 89.7 fL (75.5-95.3); PLATELET COUNT (AUTO) 248 K/uL (179-408)
[2021-03-20] MEDS: BLOOD SUGAR DIAGNOSTIC 1 EACH STRIP VI SCH ×4 (06:32→20:38)
[2021-03-20 07:08] LABS: THYROID STIMULATING HORMONE 2.92 mIU/mL (0.358-3.740)
[2021-03-20 07:32] VITALS: BP 115/59
[2021-03-20 08:09] LABS: BILIRUBIN,TOTAL 0.5 mg/dL (0.2-1.0); CREATININE 1.1 mg/dL (0.6-1.3); MAGNESIUM 2.3 mg/dL (1.8-2.4); PHOSPHOROUS 5.1 mg/dL (2.5-4.9); POTASSIUM 4.6 mmol/L (3.5-5.1); TOTAL PROTEIN, SERUM 6.7 g/dL (6.4-8.2)
[2021-03-20] MEDS: DULOXETINE 60 MG CAPSULE.DR PO SCH (08:21)
[2021-03-20] MEDS: MULTIVITAMINS,THERAPEUTIC TABLET PO SCH (08:21)
[2021-03-20] MEDS: LINAGLIPTIN 5 MG TABLET PO SCH (08:21)
[2021-03-20] MEDS: DOCUSATE SODIUM 100 MG CAPSULE PO SCH ×2 (08:22→17:27)
[2021-03-20] MEDS: MIRALAX 17 GM POWD.PACK PO SCH (08:26)
[2021-03-20] MEDS: OXYCODONE HCL 10 MG TAB.SR.12H PO SCH ×2 (08:26→20:33)
[2021-03-20] MEDS: VALSARTAN 160 MG TABLET PO SCH (08:27)
[2021-03-20] MEDS: METOPROLOL TARTRATE 25 MG TABLET PO SCH ×2 (08:27→20:33)
[2021-03-20] MEDS: LIDOCAINE 5% PATCH TD SCH (08:27)
[2021-03-20] MEDS: CLOTRIMAZOLE 1% CREAM 30 GM TUBE TOP SCH ×2 (08:28→17:28)
[2021-03-20] MEDS: Z GUARD REMEDY PASTE 57 GM TUBE TOP SCH ×2 (08:28→20:38)
[2021-03-20] MEDS: INSULIN REGULAR, HUMAN 300 UNIT/3 ML VIAL SQ PRN (11:35)
[2021-03-20 11:43] VITALS: BP 103/45
[2021-03-20] MEDS: HYDROCODONE/APAP 5-325MG TABLET PO PRN (11:54)
[2021-03-20 15:51] VITALS: BP 101/68
[2021-03-20] MEDS: OXYCODONE/APAP 5-325 MG TABLET PO PRN (17:26)
[2021-03-20] MEDS: ATORVASTATIN 20 MG TABLET PO SCH (20:00)
[2021-03-20] MEDS: GABAPENTIN 100 MG CAPSULE PO SCH (20:00)
[2021-03-20] MEDS: ENOXAPARIN SODIUM 40 MG/0.4 ML DISP.SYRIN SQ SCH (20:06)
[2021-03-20 20:10] VITALS: BP 119/35
[2021-03-21] MEDS: ACETAMINOPHEN 325 MG TABLET PO PRN (00:34)
[2021-03-21] MEDS: PANTOPRAZOLE SODIUM 40 MG TABLET.DR PO SCH (06:16)
[2021-03-21] MEDS: LEVOTHYROXINE SODIUM 75 MCG TABLET PO SCH (06:16)
[2021-03-21] MEDS: BLOOD SUGAR DIAGNOSTIC 1 EACH STRIP VI SCH ×4 (06:17→20:50)
--- NOTE | 2021-03-21 07:30 | NUR ---
Patient received in bed, alert and oriented x3-4, mainly Farsi-speaking. Right hand IV intact with no redness or swelling. BS is 115 this AM, no coverage required. On RA with no SOB or difficulties breathing. No acute distress noted at this time. All needs met at this time. Call light and personal belongings within easy reach. Will continue to monitor.
[2021-03-21 07:38] VITALS: BP 133/46
[2021-03-21] MEDS: MIRALAX 17 GM POWD.PACK PO SCH (08:00)
[2021-03-21] MEDS: LIDOCAINE 5% PATCH TD SCH (08:00)
[2021-03-21] MEDS: CLOTRIMAZOLE 1% CREAM 30 GM TUBE TOP SCH ×2 (08:01→16:57)
[2021-03-21] MEDS: VALSARTAN 160 MG TABLET PO SCH (08:01)
[2021-03-21] MEDS: Z GUARD REMEDY PASTE 57 GM TUBE TOP SCH ×2 (08:02→20:49)
[2021-03-21] MEDS: LINAGLIPTIN 5 MG TABLET PO SCH (08:02)
[2021-03-21] MEDS: OXYCODONE HCL 10 MG TAB.SR.12H PO SCH ×2 (08:02→20:36)
[2021-03-21] MEDS: METOPROLOL TARTRATE 25 MG TABLET PO SCH ×2 (08:02→20:36)
[2021-03-21] MEDS: DULOXETINE 60 MG CAPSULE.DR PO SCH (08:02)
[2021-03-21] MEDS: DOCUSATE SODIUM 100 MG CAPSULE PO SCH ×2 (08:02→16:57)
[2021-03-21] MEDS: MULTIVITAMINS,THERAPEUTIC TABLET PO SCH (08:02)
[2021-03-21] MEDS: HYDROCODONE/APAP 5-325MG TABLET PO PRN ×2 (09:26→18:49)
[2021-03-21] MEDS: OXYCODONE/APAP 5-325 MG TABLET PO PRN (13:16)
[2021-03-21 15:37] VITALS: BP 102/42
[2021-03-21 15:48] VITALS: BP 102/42
[2021-03-21] MEDS: INSULIN REGULAR, HUMAN 300 UNIT/3 ML VIAL SQ PRN ×2 (16:57→20:51)
[2021-03-21 20:03] VITALS: BP 112/43
[2021-03-21] MEDS: ATORVASTATIN 20 MG TABLET PO SCH (20:36)
[2021-03-21] MEDS: GABAPENTIN 100 MG CAPSULE PO SCH (20:36)
[2021-03-21] MEDS: ENOXAPARIN SODIUM 40 MG/0.4 ML DISP.SYRIN SQ SCH (20:49)
--- NOTE | 2021-03-21 21:12 | NUR ---
Received pt resting in bed. AAO x3. Farsi speaking, able to make needs known. No acute distress noted. C/o 7/10 pain, routine pain meds including other due meds given as ordered. Blood sugar 104, no insulin coverage as per sliding scale. Turned and repositioned pt. Both heels offloaded. Pt kept comfortable. Safety measures maintained. Call light and personal items within reach. Will continue to monitor.
[2021-03-22] MEDS: OXYCODONE/APAP 5-325 MG TABLET PO PRN (03:11)
[2021-03-22 04:03] VITALS: BP 108/45
[2021-03-22] MEDS: PANTOPRAZOLE SODIUM 40 MG TABLET.DR PO SCH (06:06)
[2021-03-22] MEDS: LEVOTHYROXINE SODIUM 75 MCG TABLET PO SCH (06:06)
[2021-03-22] MEDS: BLOOD SUGAR DIAGNOSTIC 1 EACH STRIP VI SCH ×4 (06:48→20:53)
[2021-03-22 07:18] VITALS: BP 149/51
[2021-03-22] MEDS: LIDOCAINE 5% PATCH TD SCH (08:36)
[2021-03-22] MEDS: MIRALAX 17 GM POWD.PACK PO SCH (08:36)
[2021-03-22] MEDS: OXYCODONE HCL 10 MG TAB.SR.12H PO SCH ×2 (08:36→20:46)
[2021-03-22] MEDS: MULTIVITAMINS,THERAPEUTIC TABLET PO SCH (08:37)
[2021-03-22] MEDS: VALSARTAN 160 MG TABLET PO SCH (08:37)
[2021-03-22] MEDS: DOCUSATE SODIUM 100 MG CAPSULE PO SCH ×2 (08:37→16:20)
[2021-03-22] MEDS: METOPROLOL TARTRATE 25 MG TABLET PO SCH ×2 (08:37→20:45)
[2021-03-22] MEDS: LINAGLIPTIN 5 MG TABLET PO SCH (08:37)
[2021-03-22] MEDS: DULOXETINE 60 MG CAPSULE.DR PO SCH (08:37)
[2021-03-22] MEDS: CLOTRIMAZOLE 1% CREAM 30 GM TUBE TOP SCH ×2 (08:38→16:20)
[2021-03-22] MEDS: Z GUARD REMEDY PASTE 57 GM TUBE TOP SCH ×2 (08:39→20:47)
[2021-03-22] MEDS: HYDROCODONE/APAP 5-325MG TABLET PO PRN (13:25)
[2021-03-22 15:12] VITALS: BP 113/49
[2021-03-22] MEDS ORDERED: GUAIFENESIN/DEXTROMETHORPHAN 5 ML UDC PO PRN (15:30)
[2021-03-22] MEDS: GABAPENTIN 100 MG CAPSULE PO SCH (20:45)
[2021-03-22] MEDS: ATORVASTATIN 20 MG TABLET PO SCH (20:45)
[2021-03-22 20:46] VITALS: BP 133/49
[2021-03-22] MEDS: ENOXAPARIN SODIUM 40 MG/0.4 ML DISP.SYRIN SQ SCH (20:47)
[2021-03-23 04:49] VITALS: BP 123/48
[2021-03-23] MEDS: LEVOTHYROXINE SODIUM 75 MCG TABLET PO SCH (06:25)
[2021-03-23] MEDS: PANTOPRAZOLE SODIUM 40 MG TABLET.DR PO SCH (06:25)
[2021-03-23] MEDS: BLOOD SUGAR DIAGNOSTIC 1 EACH STRIP VI SCH ×4 (06:33→20:57)
[2021-03-23 08:00] VITALS: BP 113/47
--- NOTE | 2021-03-23 08:30 | NUR ---
RECEIVED PATIENT IN BED AWAKE ALERT AND ORIENTED WITH LANGUAGE AND SOME HEARING DEFICITS BUT IS ABLE TO MAKE SIMPLE NEEDS KNOWN REQUIRES TOTAL ASSIST FOR ALL ADL ASSISTED WITH REPOSITIONING AND ADLS ON ROUTINE PAIN MEDICATIONS GIVEN ORDERED.CALL LIGHTS AND HER PERSONAL BELONGINGS ARE WITHIN EASY REACH AT THIS TIME MADE COMFORTABLE WILL CONTINUE REHABILITATION EXERCISES ORDERED.
[2021-03-23] MEDS: OXYCODONE HCL 10 MG TAB.SR.12H PO SCH ×2 (08:47→20:46)
[2021-03-23] MEDS: DOCUSATE SODIUM 100 MG CAPSULE PO SCH ×2 (08:47→16:50)
[2021-03-23] MEDS: LINAGLIPTIN 5 MG TABLET PO SCH (08:48)
[2021-03-23] MEDS: DULOXETINE 60 MG CAPSULE.DR PO SCH (08:48)
[2021-03-23] MEDS: VALSARTAN 160 MG TABLET PO SCH (08:48)
[2021-03-23] MEDS: MULTIVITAMINS,THERAPEUTIC TABLET PO SCH (08:48)
[2021-03-23] MEDS: METOPROLOL TARTRATE 25 MG TABLET PO SCH ×2 (08:49→20:46)
[2021-03-23] MEDS: MIRALAX 17 GM POWD.PACK PO SCH (08:49)
[2021-03-23] MEDS: LIDOCAINE 5% PATCH TD SCH (08:49)
[2021-03-23] MEDS: CLOTRIMAZOLE 1% CREAM 30 GM TUBE TOP SCH ×2 (08:53→16:55)
[2021-03-23] MEDS: Z GUARD REMEDY PASTE 57 GM TUBE TOP SCH ×2 (08:58→20:52)
[2021-03-23] MEDS: OXYCODONE/APAP 5-325 MG TABLET PO PRN ×2 (11:23→18:51)
--- NOTE | 2021-03-23 11:24 | NUR ---
PATIENT STATED THAT HER PAIN IS COMING BACK STRONG HER ROUTINE OXY IS WEARING OFF MEDICATED WITH PERCOCET ORDERED OCCUPATIONAL THERAPIST IS AT HER BED SIDE AND ASSISTED WITH GETTING HER OUT OF BED AT THIS TIME WILL OBSERVE.
[2021-03-23 11:40] VITALS: BP 126/48
[2021-03-23] MEDS: INSULIN REGULAR, HUMAN 300 UNIT/3 ML VIAL SQ PRN ×2 (12:08→16:49)
--- NOTE | 2021-03-23 14:00 | NUR ---
DR WELLER HERE TO SEE PATIENT AND HE IS AWARE THAT PATIENT IS NEEDING MORE PAIN MEDICATIONS BECAUSE SHE STATED THAT SHE IS HAVING MORE PAIN AND HE STATED WILL INCREASE HER NEURONTIN.
[2021-03-23 15:45] VITALS: BP 112/90
[2021-03-23 20:03] VITALS: BP 110/45
[2021-03-23] MEDS: ATORVASTATIN 20 MG TABLET PO SCH (20:45)
[2021-03-23] MEDS: ENOXAPARIN SODIUM 40 MG/0.4 ML DISP.SYRIN SQ SCH (20:47)
[2021-03-23] MEDS ORDERED: GABAPENTIN 300 MG CAPSULE PO SCH (21:00)
[2021-03-23 21:48] LABS: *BILIRUBIN,URIN NEGATIVE (NEGATIVE); *BLOOD, URINE NEGATIVE (NEGATIVE); *CLARITY,URINE CLEAR (CLEAR); *COLOR,URINE YELLOW (YELLOW); *KETONES,URINE NEGATIVE (NEGATIVE); *UROBILINOGEN,URINE 0.2 E.U./dl (NORMAL); LEUKOCYTE ESTERASE ,URINE NEGATIVE (NEGATIVE); NITRITE, URINE NEGATIVE (NEGATIVE); PH,URINE 7.5 (5.0-8.0); UGLUCOSE NEGATIVE (NEGATIVE)
--- NOTE | 2021-03-24 00:18 | NUR ---
Received patient in bed, intermittently dosing/ sleeping, easily arousable. Can make needs known. Patient is Farsi speaking, but does speak little Emirati. Patient received due medications, tolerated well. Urine specimen collected as ordered by MD. Fall and safety precautions observed. Will continue to anticipate patient's needs.
[2021-03-24 04:03] VITALS: BP 150/50
[2021-03-24 06:23] LABS: HEMATOCRIT 30.5 % (31.2-41.9); MEAN CORPUSCULAR HEMOGLOBIN 30.2 uug (24.7-32.8); MEAN CORPUSCULAR VOLUME 89.3 fL (75.5-95.3); PLATELET COUNT (AUTO) 286 K/uL (179-408)
[2021-03-24 06:39] LABS: BILIRUBIN,TOTAL 0.4 mg/dL (0.2-1.0); MAGNESIUM 2.5 mg/dL (1.8-2.4); PHOSPHOROUS 5.1 mg/dL (2.5-4.9); POTASSIUM 4.4 mmol/L (3.5-5.1); TOTAL PROTEIN, SERUM 6.8 g/dL (6.4-8.2)
[2021-03-24] MEDS: LEVOTHYROXINE SODIUM 75 MCG TABLET PO SCH (06:45)
[2021-03-24] MEDS: PANTOPRAZOLE SODIUM 40 MG TABLET.DR PO SCH (06:45)
[2021-03-24] MEDS: BLOOD SUGAR DIAGNOSTIC 1 EACH STRIP VI SCH ×2 (07:35→11:49)
[2021-03-24 08:00] VITALS: BP 142/55
[2021-03-24] MEDS: DOCUSATE SODIUM 100 MG CAPSULE PO SCH (08:38)
[2021-03-24] MEDS: LINAGLIPTIN 5 MG TABLET PO SCH (08:39)
[2021-03-24] MEDS: METOPROLOL TARTRATE 25 MG TABLET PO SCH (08:39)
[2021-03-24] MEDS: VALSARTAN 160 MG TABLET PO SCH (08:39)
[2021-03-24] MEDS: DULOXETINE 60 MG CAPSULE.DR PO SCH (08:39)
[2021-03-24] MEDS: MULTIVITAMINS,THERAPEUTIC TABLET PO SCH (08:39)
[2021-03-24] MEDS: OXYCODONE HCL 10 MG TAB.SR.12H PO SCH (08:40)
[2021-03-24] MEDS: MIRALAX 17 GM POWD.PACK PO SCH (08:50)
[2021-03-24] MEDS: Z GUARD REMEDY PASTE 57 GM TUBE TOP SCH (08:51)
[2021-03-24] MEDS: LIDOCAINE 5% PATCH TD SCH (08:51)
[2021-03-24] MEDS: CLOTRIMAZOLE 1% CREAM 30 GM TUBE TOP SCH (08:52)
[2021-03-24] MEDS ORDERED: GLUCERNA SHAKE VANILLA 237 ML CAN PO SCH (09:00)
[2021-03-24 10:53] LABS: *OCCULT BLOOD STOOL NEGATIVE (NEGATIVE)
[2021-03-24 16:00] VITALS: BP 126/46
[2021-03-24] MEDS: HYDROCODONE/APAP 5-325MG TABLET PO PRN (16:34)
--- NOTE | 2021-03-24 17:00 | NUR ---
Patient picked up for D/C to [facility] via ambulance. Alert and oriented. 20g hep-lock removed from right hand. Tip intact, no signs of bleeding or infection noted. Skin intact. Bowel & bladder WNL. Vital signs stable. Family at bedside. All needs attended to. No needs left unmet.
== END 2021-03-24 16:15 | DRG 560 ==
PROVIDERS: ADMIT Physical Medicine & Rehabilitation; ATTEND Physical Medicine & Rehabilitation
DX: M80.08XD Age-related osteoporosis with current pathological fracture, vertebra(e), subsequent encounter for fracture with routine healing (principal); E87.1 Hypo-osmolality and hyponatremia; D68.59 Other primary thrombophilia; D64.9 Anemia, unspecified; E03.9 Hypothyroidism, unspecified; E66.9 Obesity, unspecified; Z68.30 Body mass index [BMI] 30.0-30.9, adult; E78.5 Hyperlipidemia, unspecified; E86.1 Hypovolemia; G62.9 Polyneuropathy, unspecified; G89.4 Chronic pain syndrome; I11.0 Hypertensive heart disease with heart failure; I50.9 Heart failure, unspecified; M25.78 Osteophyte, vertebrae; M48.061 Spinal stenosis, lumbar region without neurogenic claudication; R53.81 Other malaise; R26.9 Unspecified abnormalities of gait and mobility; D50.9 Iron deficiency anemia, unspecified; E11.9 Type 2 diabetes mellitus without complications; L30.4 Erythema intertrigo; M43.17 Spondylolisthesis, lumbosacral region; K59.00 Constipation, unspecified
CPT/HCPCS: 36415; 71045; 72110; 72170; 83550; 83605; 83735; 84100; 84443; 85025; 87086; 97161; A6209; J1650; J1815; J7030; J7512